=== PATIENT | male | born 1990 | race Caucasian/White ===

== ENCOUNTER 2022-05-22 11:06 | Emergency (ER) | payer OTHER ==
[~2022-05-22] VITALS: Ht 193 cm; Wt 163.0 kg
--- NOTE | 2022-05-22 12:33 | ED Integumentary General ---
General Chief Complaint: Skin/Wound Problems Stated Complaint: SORE ON TAILBONE Nursing Triage Note: PT TO ED W/ C/O POSS ABSCESS TO TAILBONE. REPORTS HX OF SAME BUT IT "WENT AWAY ON ITS OWN". PT UNABLE TO SIT DOWN DUE TO PAIN. NO OTHER C/O VOICED. Source: patient Exam Limitations: no limitations History of Present Illness Date Seen by Provider: May 22, 2022 Time Seen by Provider: 12:32 Initial Comments Patient is a 32-year-old male who presents ED with an abscess to his tailbone. History of pilonidal cyst 8 years ago. Noted some pain, redness increase in s ize of a area overlying his tailbone. Reports the size of a quarter. Noted some redness reports pain with sitting. Denies any drainage. Denies fever, chills, nausea vomiting, diarrhea, change in urination. Allergies and Home Medications Allergies Coded Allergies: No Known Drug Allergies (Unverified , 05/22/22) Patient Home Medication List Home Medication List Reviewed: Yes Sulfamethoxazole/Trimethoprim (Bactrim Ds Tablet) 800 Mg-160 Mg Tablet, 1 EACH PO BID Prescribed by: ANUSHKA MEDRANO on 05/22/22 1330 Review of Systems Review of Systems Constitutional: No chills, No diaphoresis, No malaise, No weakness EENTM: No ear pain, No double vision, No mouth pain, No mouth swelling Respiratory: No cough, No dyspnea on exertion Cardiovascular: No chest pain, No edema Gastrointestinal: No abdominal pain, No diarrhea, No nausea, No vomiting Genitourinary: No decreased output, No discharge Musculoskeletal: back pain; No joint pain Skin: change in color, other (Abscess) All Other Systems Reviewed Negative Unless Noted: Yes Past Wnylxxn-Jomqnb-Epnlwx Hx Patient Social History Tobacco Use?: No Use of E-Cig and/or Vaping dev: No Substance use?: No Alcohol Use?: Yes Alcohol Frequency: Once in a while Pt feels they are or have been: No Past Medical History Surgery/Hospitalization HX: DENIED 05/22 Physical Exam Vital Signs Vital Signs - First Documented 05/22/22 11:10 Temp 35.9 Pulse 108 Resp 20 B/P (MAP) 149/90 (109) Pulse Ox 96 Capillary Refill : General Appearance: WD/WN, no apparent distress HEENT: PERRL/EOMI, normal ENT inspection, TMs normal, pharynx normal Neck: non-tender, full range of motion, supple Cardiovascular: regular rate, rhythm, no edema, no gallop, no JVD Respiratory: chest non-tender, lungs clear, normal breath sounds, no respiratory distress, no accessory muscle use Gastrointestinal: normal bowel sounds, non tender, soft Back: normal inspection, no CVA tenderness Extremities: normal range of motion, non-tender, normal inspection, no pedal edema Skin: other (Quarter size fluctuant mass overlying the tailbone. Surrounding redness. Tenderness to palpate. No active drainage) Lymphatic: no adenopathy Procedures/Interventions I&D : Blade Size: 11 I & D Procedure: betadine prep Packing/Drain: Idoform 03/30 Progress Betadine prep. 1% lidocaine 10 mls was used to anesthetize a quarter size abscess overlying the tailbone. Surrounding redness and swelling. Large amount of purulent and bloody drainage. Iodoform packing was placed. Tolerated procedure well. Progress/Results/Core Measures Results/Orders My Orders Orders - PHILL PUTNAM Lidocaine 1% Inj 10 Ml (Xylocaine 1% Inj (05/22/22 12:45) Medications Given in ED Current Medications Medications Dose Ordered Sig/Brien Route Start Time Stop Time Status Last Admin Dose Admin Lidocaine HCl 10 ml ONCE ONCE INJ 05/22/22 12:45 05/22/22 12:46 DC 05/22/22 13:23 10 ML Vital Signs/I&O 05/22/22 11:10 Temp 35.9 Pulse 108 Resp 20 B/P (MAP) 149/90 (109) Pulse Ox 96 Blood Pressure Mean: 109 Departure Communication (PCP) Large draining abscess overlying the tailbone. Concerning for a pilonidal cyst. Iodoform packing was placed. Return back in 2 to 3 days for removal. Will start on Bactrim. General surgery outpatient follow-up. Return precaution were discussed such as increasing pain, redness or swelling. Anti-inflammatories for pain. Patient agrees with plan of action Impression Primary Impression: Abscess Disposition: HOME, SELF-CARE Condition: Stable Departure-Patient Inst. Decision time for Depature: 13:29 Referrals: [facility],LOCAL PHYSICIAN (PCP) Primary Care Physician Patient Instructions: Cellulitis (Skin Infection), Child (DC) Add. Discharge Instructions: Remove packing in 2 to 3 days. You may return back to ED. Bactrim for infection. Okay to shower. Return back to ED if symptoms worsen. Anti- inflammatories for pain All discharge instructions reviewed with patient and/or family. Voiced understanding. Scripts Sulfamethoxazole/Trimethoprim (Bactrim Ds Tablet) 800 Mg-160 Mg Tablet 1 EACH PO BID for 10 Days, #20 TAB Prov: PHILL PUTNAM 05/22/22 PHILL PUTNAM May 22, 2022 12:33
[2022-05-22] MEDS ORDERED: LIDOCAINE 1% INJ 10 ML VIAL INJ ONE (12:45)
[2022-05-22] MEDS ORDERED: SULF-221 PO (13:30)
[2022-05-22 14:11] VITALS: BP 136/89
== END 2022-05-22 14:11 | disposition home or self-care (01) ==
LOC: EDUNIT# 11:06 → ER 11:07
DX: L05.01 Pilonidal cyst with abscess (principal)
CPT/HCPCS: 10061; 10160

== ENCOUNTER 2022-05-24 17:54 | Emergency (ER) | payer OTHER ==
[~2022-05-24] VITALS: Ht 193 cm; Wt 163.2 kg
[~2022-05-24 17:54] MED LIST: SULF-221 PO
[2022-05-24 17:57] VITALS: BP 145/89
--- NOTE | 2022-05-24 18:12 | ED Integumentary General ---
General Stated Complaint: WOUND CHECK AND PACKED Source: patient Exam Limitations: no limitations History of Present Illness Date Seen by Provider: May 24, 2022 Time Seen by Provider: 18:08 Initial Comments Patient is a 32-year-old male who presents ED with wound recheck. Patient was seen here few days ago and had a pilonidal cyst drained. Packing was placed. He is currently on Bactrim. Patient states that the packing is still in place. He noted improvement of pain and redness. He has no current complaints at this time. Denies of any active drainage, fever, chills, abdominal pain, back pain. Allergies and Home Medications Allergies Coded Allergies: No Known Drug Allergies (Unverified , 05/22/22) Patient Home Medication List Home Medication List Reviewed: Yes Sulfamethoxazole/Trimethoprim (Bactrim Ds Tablet) 800 Mg-160 Mg Tablet, 1 EACH PO BID Prescribed by: ANUSHKA MEDRANO on 05/22/22 1330 Review of Systems Review of Systems Constitutional: No chills, No diaphoresis, No malaise, No weakness EENTM: No blurred vision, No double vision Respiratory: No short of breath Cardiovascular: No chest pain, No edema Gastrointestinal: No abdominal pain, No diarrhea, No nausea, No vomiting Genitourinary: No decreased output, No discharge Musculoskeletal: No back pain, No joint pain Skin: change in color All Other Systems Reviewed Negative Unless Noted: Yes Past Gzrbqed-Vrpvgf-Lpdwwk Hx Past Medical History Surgery/Hospitalization HX: DENIED 05/22 Physical Exam Vital Signs Capillary Refill : General Appearance: WD/WN, no apparent distress HEENT: PERRL/EOMI, normal ENT inspection, TMs normal, pharynx normal Neck: non-tender, full range of motion Cardiovascular: regular rate, rhythm, no edema, no gallop, no JVD Respiratory: chest non-tender, lungs clear, normal breath sounds, no respiratory distress, no accessory muscle use Gastrointestinal: normal bowel sounds, non tender, soft, no organomegaly Back: no CVA tenderness, no vertebral tenderness Extremities: normal range of motion, non-tender, normal inspection 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 ) Departure Communication (PCP) Reviewed previous ER notes, procedures. Wound appears to be healing. No tender ness to palpate. Packing was removed. Patient has no current complaint. Wound was left open to continue allowing drainage. Currently on Bactrim. Does not appear toxic. Continue monitoring. If increased pain, redness or swelling to return back to ED. Impression Primary Impression: Encounter for wound re-check Disposition: HOME, SELF-CARE Condition: Stable Departure-Patient Inst. Decision time for Depature: 18:11 Referrals: [facility] [place],LOCAL PHYSICIAN (PCP) Primary Care Physician Patient Instructions: Wound Care (DC) Add. Discharge Instructions: If any worsening symptoms such as pain, swelling, fever to return back to ED. Continue with antibiotics PHILL PUTNAM May 24, 2022 18:12
== END 2022-05-24 18:18 | disposition home or self-care (01) ==
LOC: EDUNIT# 17:54 → ER 17:55
DX: Z48.00 Encounter for change or removal of nonsurgical wound dressing (principal)

== ENCOUNTER 2022-12-05 18:34 | Emergency (ER) | payer OTHER ==
[~2022-12-05] VITALS: Ht 193 cm; Wt 164.0 kg
[2022-12-05 18:47] VITALS: BP 182/102
[2022-12-05] MEDS ORDERED: AMOXICILLIN/Clavulanate 875 MG TABLET PO STA (19:21)
--- NOTE | 2022-12-05 19:21 | ED General ---
General Chief Complaint: Bite-Animal/Human/Insect Stated Complaint: BITE ON HAND Nursing Triage Note: PT BITTEN BY OWN DOG ON L HAND. PT STATES DOG DOES NOT HAVE RABIES VACCINE. PT HAS FANG CAIN ON L HAND. RATES PAIN 04/05. Source of Information: Patient Exam Limitations: No Limitations History of Present Illness Date Seen by Provider: Dec 05, 2022 Time Seen by Provider: 19:06 Initial Comments This 32-year-old gentleman presents to the emergency room with dog bite injury to the radial aspect of the left hand. The dog was a puppy he adopted about a month ago from the [facility]. He brings in the shot records. I do not specifically see rabies listed as a vaccination received. The dog has been an indoor dog and has not had any other behavioral issues. The dog is presently contained in a kennel at the patient's house. There are puncture wounds associated with this injury on the dorsal and palmar aspects of the left hand. Patient washed the injury and then applied liquid bandage to the wounds on the dorsal aspect of his hand. Last tetanus vaccination is uncertain. No vaccinations since 2002 were noted on his record. Allergies and Home Medications Allergies Coded Allergies: No Known Drug Allergies (Unverified , 05/22/22) Patient Home Medication List Home Medication List Reviewed: Yes Amoxicillin/Potassium Clav (Amox Tr-K Clv 875-125 mg Tab) 875 Mg-125 Mg Tablet, 1 EACH PO BID Prescribed by: JEANCRALOS FINLEY on 12/05/221926 Sulfamethoxazole/Trimethoprim (Bactrim Ds Tablet) 800 Mg-160 Mg Tablet, 1 EACH PO BID Prescribed by: ANUSHKA MEDRANO on 05/22/22 1330 Review of Systems Review of Systems Constitutional: no symptoms reported Musculoskeletal: see HPI Skin: see HPI Psychiatric/Neurological: No Symptoms Reported Past Dntthcf-Uqupss-Jwhlis Hx Patient Social History Tobacco Use?: No Use of E-Cig and/or Vaping dev: No Alcohol Use?: No Pt feels they are or have been: No Immunizations Up To Date First/Initial COVID19 Vaccinat: YES Second COVID19 Vaccination Enrrique: YES Past Medical History Surgery/Hospitalization HX: DENIED 05/22 Surgeries: No Respiratory: No Cardiac: No Neurological: No Reproductive Disorders: No Gastrointestinal: No Musculoskeletal: No Endocrine: No HEENT: No Cancer: No Psychosocial: No Physical Exam Vital Signs Vital Signs - First Documented 12/05/22 18:47 Temp 36.4 Pulse 93 Resp 18 B/P (MAP) 182/102 (128) Pulse Ox 96 Capillary Refill : Less Than 3 Seconds Height, Weight, BMI Height: '" Weight: lbs. oz. kg; 44.00 BMI Method:Stated General Appearance: No Apparent Distress, WD/WN HEENT: Normal ENT Inspection Extremity: Other (Current and abrasion wounds to the radial aspect of the left hand, both on the dorsal and palmar surfaces. No active bleeding. No significant pain with range of motion in the hand or wrist.) Progress/Results/Core Measures Suspected Sepsis SIRS Temperature: Pulse: 93 Respiratory Rate: 18 Blood Pressure 182 /102 Mean: 128 Results/Orders My Orders Orders - JEANCARLOS CAMPA MD Amoxicillin/Clavulanate Tablet (Amoxicil (12/05/22 19:21) Dipht/Pertuss(Acell)/Tet Adult (Dipht/Pe (12/05/22 19:45) Medications Given in ED Current Medications Medications Dose Ordered Sig/Brien Route Start Time Stop Time Status Last Admin Dose Admin Diphtheria/ Tetanus/Acell Pertussis 0.5 ml ONCE ONCE IM 12/05/22 19:45 12/05/22 19:39 DC 12/05/22 19:36 0.5 ML Vital Signs/I&O 12/05/22 18:47 Temp 36.4 Pulse 93 Resp 18 B/P (MAP) 182/102 (128) Pulse Ox 96 Capillary Refill : Less Than 3 Seconds Blood Pressure Mean: 128 Progress Note : Progress Note Tetanus booster was administered. The first dose of Augmentin prophylactic antibiotic treatment was provided in the ER. Patient plans to surrender the dog back to the [facility]. He was encouraged to develop an observation plan with the [facility] to ensure vaccination can occur if the dogs behavior changes. He is to contact the [facility] in the morning regarding the dog's vaccination status as well. Since this is a puppy that has been primarily indoors, risk of rabies is very low. See discharge instructions for further discussion. Departure Impression Primary Impression: Dog bite Qualified Codes: W54.0XXA - Bitten by dog, initial encounter Additional Impression: Puncture wound Disposition: HOME, SELF-CARE Condition: Stable Departure-Patient Inst. Decision time for Depature: 19:22 Referrals: NO,LOCAL PHYSICIAN (PCP/Family) Primary Care Physician Patient Instructions: DOG BITE Add. Discharge Instructions: Start your antibiotic as soon as possible tomorrow and complete the entire 1 week course. Return to care promptly if you notice increasing swelling increasing heat, spreading redness, fever, or puslike drainage of the injured area. Monitor the dog in a secure location. Contact the [employer] tomorrow morning to inquire about rabies vaccination. If the dog was not vaccinated for rabies, it will need to be monitored in a secure location for behavioral changes for at least 10 days. Please develop a plan for monitoring of this dog with the [employer] if it is not vaccinated. If there are any concerns about the dog's behavior in regard to possible rabies infection, return to the emergency room immediately to receive immunoglobulin injections and rabies vaccination. Please call the number above if you have any questions or concerns. All discharge instructions reviewed with patient and/or family. Voiced understanding. Scripts Amoxicillin/Potassium Clav (Amox Tr-K Clv 875-125 mg Tab) 875 Mg-125 Mg Tablet 1 EACH PO BID, #14 TAB Prov: JEANCARLOS CAMPA MD 12/05/22 JEANCARLOS CAMPA MD Dec 05, 2022 19:21
[2022-12-05] MEDS ORDERED: AMOX1TAB12 PO (19:27)
[2022-12-05] MEDS ORDERED: Tetanus/Diphtheria/Pertussis (Acell) ADULT Vaccine 0.5 ML IM ONE (19:45)
== END 2022-12-05 19:39 | disposition home or self-care (01) ==
LOC: EDUNIT# 18:34 → ER 18:37
DX: S61.432A Puncture wound without foreign body of left hand, initial encounter (principal); Z23 Encounter for immunization; W54.0XXA Bitten by dog, initial encounter
CPT/HCPCS: 90715; 99284